=== PATIENT | female | born 1955 | race Caucasian/White ===

== ENCOUNTER → 2017-02-22 | Outpatient (REF) | payer BC | LOC: M LAB REF 13:16 | PROVIDERS: ATTEND Nurse Practitioner Adult Health | DX: R71.8 Other abnormality of red blood cells (principal) ==

== ENCOUNTER → 2017-05-06 | Outpatient (REF) | payer BC ==
[2017-05-06 18:41] LABS: PERCENT SATURATION 30.7 % (13.2-45.0)
== END ==
LOC: M LAB REF 17:07
PROVIDERS: ATTEND Nurse Practitioner Adult Health
DX: R71.8 Other abnormality of red blood cells (principal)

== ENCOUNTER → 2018-04-01 | Outpatient (REF) | payer BC ==
[2018-04-01 11:11] LABS: COLLAGEN EPINEPHRINE 111 SECONDS (74-162)
== END ==
LOC: M LABDRWAD 09:59
DX: L72.0 Epidermal cyst (principal)
CPT/HCPCS: 85576

== ENCOUNTER → 2021-03-07 | Outpatient (CLI) | payer MEDICARE, BC ==
--- NOTE | 2021-03-07 16:50 | REPMRS ---
Patient History The patient states she had a clinical breast exam in December 2020. Patient is postmenopausal and is nulliparous. Family history of ovarian cancer at age 37 in mother. Patient states no breast complaints today. Patient has signed MRS History Sheet. Digital Woman Screen Mammo: March 07, 2021 - Exam #: [id number] Bilateral CC and MLO view(s) were taken. Technologist: Merlene Epps, Technologist Prior study comparison: February 22, 2019, bilateral digital mammo screening bilat, performed at [email or web address]. May 17, 2017, bilateral digital mammo screening bilat, performed at [email or web address]. April 02, 2016, bilateral digital mammo screening bilat, performed at [facility] [employer] [facility]. FINDINGS: The breast tissue is almost entirely fat. The Volpara volumetric breast density category is: A. There is a grouping of punctate microcalcifications in the upper-outer quadrant of the right breast which merits further evaluation. There has been no other change in the appearance of the mammogram from the prior studies. There is no other interval development of dominant mass, architectural distortion, or grouped microcalcification typical of malignancy. 3-D tomosynthesis shows no additional findings. Assessment: BI-RADS/ACR category 0 mammogram, Incomplete: Need additional imaging evaluation and/or prior mammograms for comparison. Recommendation Special view mammogram of the right breast. This patient's [facility] Lifetime Breast Cancer RIsk is estimated at 5.1 %. This mammogram was interpreted with the aid of an FDA-approved computer-aided dectection system. Electronically Signed By: Robby Garcia MD 03/07/21 [id number]
== END ==
LOC: M WHC 15:33
PROVIDERS: ATTEND Nurse Practitioner Adult Health
DX: Z12.31 Encounter for screening mammogram for malignant neoplasm of breast (principal); Z78.0 Asymptomatic menopausal state; Z80.41 Family history of malignant neoplasm of ovary

== ENCOUNTER → 2021-03-25 | Outpatient (CLI) | payer MEDICARE, BC ==
[~2021-03-25] MED LIST: HYDR12.55 PO; K-TA10TA2 PO; LISI10TA22 PO; NOXI1TAB PO; TREL1AER PO
--- NOTE | 2021-03-25 11:21 | REP ---
INDICATION: RIGHT BREAST ADD VIEWS. COMPARISON: Multiple the latest 03/07/2021 TECHNIQUE: Diagnostic digital magnified spot compression views of the right breast were obtained in the CC and MLO projections to evaluate a new grouping of calcifications seen on the screening examination of 03/07/2021 FINDINGS: In 1 sq cm of breast tissue there are 2 distinct groups of calcifications some of which vary in size, shape and radiographic density. IMPRESSION: BIRADS/ACR category 4 mammogram. New grouping of calcifications in the right breast upper outer quadrant, as described above, and for which biopsy is recommended. The patient letter being requested is M4. RECOMMENDATION: As above <Electronically signed by Roosevelt Rosado > 03/25/21 [id number]
== END ==
LOC: M WHC 08:48
PROVIDERS: ATTEND Nurse Practitioner Adult Health
DX: R92.8 Other abnormal and inconclusive findings on diagnostic imaging of breast (principal)

== ENCOUNTER → 2021-04-08 | Outpatient (CLI) | payer MEDICARE, BC ==
[2021-04-08 13:57] VITALS: BP 140/90
--- NOTE | 2021-04-08 14:34 | REP ---
INDICATION: MAMMOGRPAHIC CALCS FOUND ON MAMMO RIGHT BREAST POST STEREO F. COMPARISON: Comparison right mammography March 25 and March 07, 2021. TECHNIQUE: Two views. FINDINGS: Specimen radiography demonstrates the target micro calcific grouping removed in 1 of the specimens. IMPRESSION: Specimen radiography does show microcalcifications from the target grouping. <Electronically signed by Robby Garcia > 04/08/21 [id number]
--- NOTE | 2021-04-08 14:42 | REP ---
INDICATION: MAMMOGRPAHIC CALCS FOUND ON MAMMO RIGHT BREAST. Marker clip placement views. COMPARISON: Comparison mammography March 25, 2021. TECHNIQUE: Craniocaudal and mediolateral views of the right breast are obtained. FINDINGS: Craniocaudal and mediolateral views of the right breast demonstrate a needle biopsy marker clip in good position where prior mammography showed the micro calcific grouping. Almost all of the microcalcifications have been removed. IMPRESSION: Marker clip in good position. <Electronically signed by Robby Garcia > 04/08/21 [id number]
--- NOTE | 2021-04-08 17:43 | REP ---
INDICATION: RT BREAST POST STEREO FOR CLIP PLACEMENT. COMPARISON: None. TECHNIQUE: This procedure is performed by Barbi Dupree [facility], under the direct supervision of Dr. Garcia. The risks and benefits of the procedure were explained to the patient and informed consent was obtained both verbally and written. Directly prior to the start of the procedure, a formal timeout was done in the procedure room. The cranial caudal superior to inferior approach was utilized on the prone table. The right breast microcalcifications were localized using mammographic guidance. The skin was prepped and draped in a sterile fashion. Five ml of buffered lidocaine was used as a local anesthetic. FINDINGS: A 10 gauge mammotome vacuum assisted biopsy device was inserted and advanced into the right breast microcalcifications and 6 core biopsy samples were obtained. A shape 1 marker clip was placed at the biopsy site. The patient tolerated the procedure well and there were no immediate complications. After the appropriate amount of monitored convalescence the patient was discharged from the department. IMPRESSION: Stereotactic guided right breast biopsy with micro clip placement. <Electronically signed by Barbi Dupree > 04/08/21 [id number] <Electronically signed by Robby Garcia > 04/08/21 [id number]
== END ==
LOC: M WHCPRO 06:39
PROVIDERS: ATTEND Nurse Practitioner Adult Health
DX: D24.1 Benign neoplasm of right breast (principal)

== ENCOUNTER → 2021-11-25 | Outpatient (REF) | payer MEDICARE, BC ==
[2021-11-25 16:48] LABS: HEMATOCRIT 52.6 % (36.0-47.0)
[2021-11-25 16:52] LABS: PERCENT SATURATION 23.5 % (13.2-45.0)
== END ==
LOC: M LAB REF 16:16
PROVIDERS: ATTEND Nurse Practitioner Adult Health
DX: R71.8 Other abnormality of red blood cells (principal)

== ENCOUNTER → 2022-03-02 | Outpatient (CLI) | payer MEDICARE, BC | LOC: M WHC 09:06 | PROVIDERS: ATTEND Nurse Practitioner Adult Health | DX: Z12.31 Encounter for screening mammogram for malignant neoplasm of breast (principal) ==

== ENCOUNTER → 2022-12-10 | Outpatient (CLI) | payer MEDICARE, BC | LOC: M WUC 10:00 | PROVIDERS: ATTEND Nurse Practitioner Adult Health | DX: R05.9 Cough, unspecified (principal) ==

== ENCOUNTER → 2024-01-06 | Outpatient (CLI) | payer MEDICARE, BC ==
[~2024-01-06] MED LIST changes: -K-TA10TA2 PO; +POTA-165 PO
== END ==
LOC: M WUC 14:40
PROVIDERS: ATTEND Nurse Practitioner Adult Health
DX: J44.9 Chronic obstructive pulmonary disease, unspecified (principal); J98.11 Atelectasis

== ENCOUNTER → 2024-01-11 | Outpatient (CLI) | payer MEDICARE, BC | LOC: M CARPUL 10:10 | PROVIDERS: ATTEND Nurse Practitioner Adult Health | DX: J44.9 Chronic obstructive pulmonary disease, unspecified (principal); R09.02 Hypoxemia; I35.8 Other nonrheumatic aortic valve disorders ==

== ENCOUNTER → 2024-02-18 | Outpatient (CLI) | payer MEDICARE, BC | LOC: M RAD 09:39 | PROVIDERS: ATTEND Internal Medicine Pulmonary Disease | DX: Z12.2 Encounter for screening for malignant neoplasm of respiratory organs (principal); Z87.891 Personal history of nicotine dependence; R91.1 Solitary pulmonary nodule ==

== ENCOUNTER → 2024-03-02 | Outpatient (CLI) | payer MEDICARE, BC | LOC: M WHC 08:38 | PROVIDERS: ATTEND Nurse Practitioner Adult Health | DX: Z12.31 Encounter for screening mammogram for malignant neoplasm of breast (principal) ==

== ENCOUNTER → 2024-03-28 | Outpatient (CLI) | payer MEDICARE, BC | LOC: M PLARAD 07:49 | PROVIDERS: ATTEND Internal Medicine Pulmonary Disease | DX: R91.1 Solitary pulmonary nodule (principal) | CPT/HCPCS: 78815; A9552 ==